=== PATIENT | female | born 1985 | race Caucasian/White ===

== ENCOUNTER 2018-12-26 14:05 | Emergency (ER) | payer SELFPAY ==
--- NOTE | 2018-12-26 14:25 | EDPHY ---
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 She normally elevates her legs and applies ice and the swelling will go down. She reports that with elevation the swelling in her right knee did not go down. 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 She denies any fall or trauma. Denies skin color changes, redness, warmth, radiation. Patient denies any locking or giving out symptoms. LMP 2-3 weeks ago. Modifying Factors: Ice and elevation Comment: ROS: A comprehensive 10 system review of systems is otherwise negative aside from elements mentioned in the history of present illness. MEDICAL/SURGICAL/SOCIAL HISTORY: Medical history: ADD, attention deficit hyperactivity disorder Surgical history: Denies Social history: Employed. Current every day smoker. CONSTITUTIONAL: Well-developed, well-nourished, young adult female, awake and alert, no obvious distress HEENT: Atraumatic and normocephalic, PERRL, EOMI. Nares patent; no rhinorrhea; no nasal mucosal edema. Tympanic membranes clear. Oropharynx clear, no exudate and moist pink mucosa. Airway patent. No lymphadenopathy. No meningismus. Cardiovascular: Normal S1/S2, regular rate, regular rhythm, without murmur rub or gallop. PULMONARY/CHEST: Symmetrical and nontender. Clear to auscultation bilaterally. Good air movement. No accessory muscle usage. ABDOMEN: Soft, nondistended, nontender, no rebound, no guarding, no peritoneal signs, no masses or organomegaly. No CVAT. EXTREMITIES: 2/2 pulses, strength 5/5, right KNEE: Minimal effusion, no medial and lateral joint line tenderness, full extension to 180, flexion to 120 . No pain with varus and valgus exam. No pain with anterior drawer or posterior drawer test. Extensor mechanism intact. Left KNEE: no effusion, no medial and lateral joint line tenderness, full extension to 180, flexion to 120 . No pain with varus and valgus exam. No pain with anterior drawer or posterior drawer test. Extensor mechanism intact. no deformities, no clubbing, no cyanosis or edema. NEUROLOGICAL: no focal neuro deficits. GCS 15. SKIN: Warm and dry, no erythema. no rash. Good capillary refill. Source: Patient Exam Limitations: No limitations - Personal History LMP (Females 10-55): 15-21 Days Ago Current Tetanus/Diphtheria Vaccine: Yes - Medical/Surgical History Hx Asthma: No Hx Chronic Respiratory Disease: No Hx Diabetes: No Hx Cardiac Disease: No Hx Renal Disease: No Hx Cirrhosis: No Hx Alcoholism: No Other PMH: ADHD/ADD - Social History Smoking Status: Current every day smoker Constitutional: Initial Vital Signs Temperature (C) 36.9 C 12/26/18 14:09 Heart Rate 91 12/26/18 14:09 Respiratory Rate 18 12/26/18 14:09 Blood Pressure 115/104 H 12/26/18 14:09 O2 Sat (%) 99 12/26/18 14:09 O2 Delivery Mode Room Air Allergies/Adverse Reactions: codeine Allergy (Mild, Verified 12/26/18 14:13) GI Home Medications: Medication Instructions Recorded Amphet Asp and D/Amphet [Adderall 10 mg PO 08/25/18 10 MG (*)] Medical Decision Making Procedures: Procedure: Splint placement. A knee immobilizer was applied. After application of the splint I returned and re-examined the patient. The splint was adequately immobilizing the joint and distal to the splint the patient's circulation and sensation was intact. ED Course/Re-evaluation: Vital signs reviewed and stable upon arrival. Bilateral knee x-rays ordered and my read shows no degenerative changes, no fracture, no dislocation Ice pack applied No significant effusion for arthrocentesis Placed in knee immobilizer, offered crutches but patient politely declined Patient referred to Orthopedics Suspect overuse injury No signs of neurovascular compromise/tenting of skin/compartment syndrome/ extremities and joints examined above and below area of concern and are neurovascularly intact/cellulitis/gouty arthropathy. This patient was seen under the supervision of my secondary supervising physician. I evaluated care for this patient independently. Differential Diagnosis: Knee injury while [] including but not limited to fracture, ACL injury, contusion, muscular strain, and meniscus injury. Departure - Departure Disposition: Home, Routine, Self-Care Clinical Impression: Knee pain, bilateral Qualifiers: Chronicity: unspecified Qualified Code(s): M25.561 - Pain in right knee; M25.562 - Pain in left knee; M25.562 - Pain in left knee Condition: Fair Instructions: Knee Pain (ED) Additional Instructions: Wear the knee immobilizer while out of bed until pain free or seen by Orthopedics. Take Tylenol 650 mg every 4 hours and/or Ibuprofen 600 mg every 8 hours with food as needed for pain. Apply ice for 30 minutes at a time; 2-3 times per day for the next 1-2 days. Follow up with Orthopedics in 7-10 days if symptoms persist at which time they will evaluate and recommend with you if conservative management versus MRI is indicated. Referrals: Luis A Nguyen MD [Primary Care Provider] - As per Instructions Gaudencio Ríos MD [Medical Doctor] - As per Instructions
[2018-12-26 15:48] VITALS: BP 116/83
== END 2018-12-26 15:48 | disposition home or self-care (01) ==
DX: M25.561 Pain in right knee (principal); M25.562 Pain in left knee
CPT/HCPCS: L1830